=== PATIENT | female | born 1955 | race Caucasian/White ===

== ENCOUNTER → 2016-09-22 | Outpatient (CLI) | payer OTHER | LOC: KOH-I 12:27 | DX: M19.071 Primary osteoarthritis, right ankle and foot (principal); M79.671 Pain in right foot | CPT/HCPCS: 73630 ==

== ENCOUNTER → 2016-09-23 | Outpatient (CLI) | payer OTHER | LOC: US 13:58 | DX: M54.2 Cervicalgia (principal); R55 Syncope and collapse; R42 Dizziness and giddiness; M54.6 Pain in thoracic spine; M54.5 Low back pain; E04.2 Nontoxic multinodular goiter; I65.23 Occlusion and stenosis of bilateral carotid arteries | CPT/HCPCS: 72050; 72072; 72110; 93880 ==